=== PATIENT | male | born 1990 | race American Indian/Alaskan Native ===

== ENCOUNTER 2021-04-13 11:14 | Emergency (ER) | payer SELFPAY ==
[2021-04-13 12:17] VITALS: BP 114/74
[2021-04-13] MEDS ORDERED: KETOROLAC 30 MG/1 ML INJ IV ONE (12:35)
[2021-04-13] MEDS ORDERED: SODIUM CHLORIDE 0.9% 1000 ML 1,000 ML IV ONE (12:35)
[2021-04-13] MEDS ORDERED: ONDANSETRON 4 MG/2 ML INJ IV ONE (12:35)
--- NOTE | 2021-04-13 12:36 | Emergency Department Report ---
ED Abdominal Pain HPI - General Chief Complaint: Abdominal Pain Stated Complaint: ABD PAIN Time Seen by Provider: 04/13/21 12:23 Source: patient Mode of arrival: Ambulatory Limitations: No Limitations - History of Present Illness Initial Comments: Patient reports having several weeks of abdominal pain. He describes it as bilateral right and left side. He has had nausea and vomiting associate with this. Over the last week, his symptoms seem to gotten worse. He states that he is having hard time eating or drink anything due to the pain and the vomiting. He has had no diarrhea associate with this. Over the last several days, is also developed a headache. He ultimately decided to come here for further evaluation. He has had no sick contacts. Has not been out of the country. Is not been on antibiotics lately. He does admit that he ate a hamburger several weeks ago that seemed to be "pink in the middle." He is unsure if he has food poisoning from that or not. Pain is described as cramping. It does not radiate or migrate. It is not exacerbated by movement, but it is exacerbated by palpation. - Related Data Previous Rx's Medication Instructions Recorded Last Taken Type Dicyclomine [Bentyl] 20 mg PO QID PRN #20 tablet 04/13/21 Unknown Rx Ondansetron [Zofran Odt] 4 mg PO Q8HR PRN #20 tab.rapdis 04/13/21 Unknown Rx Allergies Allergy/AdvReac Type Severity Reaction Status Date / Time No Known Allergies Allergy Unverified 04/13/21 12:15 ED Review of Systems ROS: Stated complaint: ABD PAIN Other details as noted in HPI Comment: All other systems reviewed and negative Constitutional: denies: fever Eyes: denies: eye pain ENT: denies: throat pain Respiratory: denies: cough Cardiovascular: denies: chest pain Endocrine: denies: unexplained weight loss Gastrointestinal: as per HPI Genitourinary: denies: dysuria Musculoskeletal: denies: back pain Skin: denies: rash Neurological: denies: headache Hematological/Lymphatic: denies: easy bruising ED Past Medical Hx - Past Medical History Previous Medical History?: No - Surgical History Past Surgical History?: No - Medications Home Medications: Home Medications Medication Instructions Recorded Confirmed Last Taken Type Dicyclomine [Bentyl] 20 mg PO QID PRN #20 tablet 04/13/21 Unknown Rx Ondansetron [Zofran Odt] 4 mg PO Q8HR PRN #20 tab.willydis 04/13/21 Unknown Rx ED Physical Exam - General Limitations: No Limitations General appearance: alert, in no apparent distress - Head Head exam: Present: atraumatic, normocephalic - Eye Eye exam: Present: normal appearance, EOMI. Absent: scleral icterus - ENT ENT exam: Present: normal exam, normal orophraynx, mucous membranes moist - Neck Neck exam: Present: normal inspection, full ROM. Absent: meningismus - Respiratory Respiratory exam: Present: normal lung sounds bilaterally. Absent: respiratory distress - Cardiovascular Cardiovascular Exam: Present: regular rate, normal rhythm - GI/Abdominal GI/Abdominal exam: Present: soft, tenderness (Mild bilateral right and mid abdomen). Absent: distended, guarding, rebound - Extremities Exam Extremities exam: Present: normal inspection, normal capillary refill - Back Exam Back exam: Absent: CVA tenderness (R), CVA tenderness (L) - Neurological Exam Neurological exam: Present: alert, oriented X3, CN II-XII intact, normal gait. Absent: motor sensory deficit - Psychiatric Psychiatric exam: Present: normal affect, normal mood - Skin Skin exam: Present: warm, dry ED Course Vital Signs 04/13/21 12:16 Temperature 98.5 F Pulse Rate 59 L Respiratory 18 Rate Blood Pressure 114/74 O2 Sat by Pulse 98 Oximetry - Reevaluation(s) Reevaluation #1: 04/13/21 12:36 IV and labs were ordered. Reevaluation #2: 04/13/21 14:58 Labs of been noted. ED Medical Decision Making - Lab Data Result diagrams: 04/13/21 13:14 04/13/21 13:14 - Medical Decision Making Patient presents with reports of abdominal pain and vomiting. He does have hemoconcentration consistent with dehydration. He certainly does not have significant evidence of tenderness or peritonitis. There is no rebound or guarding. There is no distention or tympany to suggest bowel obstruction. Based on labs, he does not have evidence of hepatitis or pancreatitis. He was treated symptomatically and referred. Even though he was concerned about food poisoning, I do not believe that food poisoning would last this long. He was treated symptomatically and referred for outpatient evaluation. Critical Care Time: No Critical care attestation.: If time is entered above; I have spent that time in minutes in the direct care of this critically ill patient, excluding procedure time. ED Disposition Clinical Impression: Generalized abdominal pain, Dehydration Nausea & vomiting Qualifiers: Vomiting type: unspecified Vomiting Intractability: non-intractable Qualified Code(s): R11.2 - Nausea with vomiting, unspecified Disposition: 01 HOME / SELF CARE / HOMELESS Is pt being admited?: No Does the pt Need Aspirin: No Condition: Stable Instructions: Dehydration, Adult, [id number], Nausea and Vomiting, Adult, Abdominal Pain, Adult Additional Instructions: Have a bland diet. Drink plenty water. Return for problems. Follow-up with your regular doctor for recheck. Prescriptions: Dicyclomine [Bentyl] 20 mg PO QID PRN #20 tablet PRN Reason: Pain, Moderate (4-6) Ondansetron [Zofran Odt] 4 mg PO Q8HR PRN #20 tab.rapdis PRN Reason: Nausea Referrals: PRIMARY CARE,MD [Primary Care Provider] - 3-5 Days
[2021-04-13 14:22] LABS: Basophils # (Auto) 0.1 K/mm3 (0.0-0.1); Eosinophils # (Auto) 0.1 K/mm3 (0.0-0.4); Eosinophils % (Auto) 1.5 % (0.0-4.3); Hematocrit 48.2 % (35.5-45.6); Hemoglobin 16.3 gm/dl (11.8-15.2); Lymphocytes # (Auto) 1.9 K/mm3 (1.2-5.4); Lymphocytes % (Auto) 38.7 % (13.4-35.0); Mean Corpuscular HGB Conc 34 % (32-34); Monocytes # (Auto) 0.5 K/mm3 (0.0-0.8); Monocytes % (Auto) 9.7 % (0.0-7.3); Platelet Count 247 K/mm3 (140-440)
[2021-04-13 14:25] LABS: Mean Corpuscular Volume 88 fl (84-94)
[2021-04-13 14:26] LABS: Basophils % (Auto) 1.3 % (0.0-1.8)
[2021-04-13 14:33] LABS: Alanine Aminotransferase 8 units/L (7-56); Albumin 4.4 g/dL (3.9-5); BUN/Creatinine Ratio 11; Blood Urea Nitrogen 11 mg/dL (9-20); Calcium 9.8 mg/dL (8.4-10.2); Hemolysis Index 4
[2021-04-13 14:37] LABS: Bilirubin,Direct < 0.2 mg/dL (0-0.2)
== END 2021-04-13 15:32 | disposition home or self-care (01) ==
LOC: ED 11:14
DX: R10.84 Generalized abdominal pain (principal); E86.0 Dehydration; R11.2 Nausea with vomiting, unspecified; Z79.899 Other long term (current) drug therapy
CPT/HCPCS: 36415; 80048; 80076; 83690; 85025; 96361; 96374; 96375; 99283; J1885; J2405; J7030